=== PATIENT | female | born 1950 | race Hispanic/Latino ===

== ENCOUNTER 2016-07-28 05:49 | Day surgery (SDC) | payer MEDICARE ==
[~2016-07-28 05:49] MED LIST: METHYLENE BLUE ONE
[2016-07-28] MEDS ORDERED: FLAGYL 500 MG/100 ML 100 ML IV SCH (06:00)
[2016-07-28] MEDS ORDERED: NACL BACTERIOSTATIC INFILTRATI ONE (06:24)
[2016-07-28] MEDS ORDERED: XYLOCAINE MPF 2% ONE (06:49)
[2016-07-28] MEDS ORDERED: SUBLIMAZE ONE (06:49)
[2016-07-28] MEDS ORDERED: DIPRIVAN 10 MG/ML IV ONE (06:49)
--- NOTE | 2016-07-28 07:07 | Anesthesia Day of Surgery ---
Anesthesia Day of Surgery - Day of Surgery Patient Examined: Yes Patient H&P Reviewed: Yes Patient is NPO: Yes Beta Blockers: Yes (last pm)
--- NOTE | 2016-07-28 07:09 | Anesthesia Consultation ---
Anesthesia Consult and Med Hx - Airway Anesthetic Teeth Evaluation: Good, Crowns ROM Head & Neck: Adequate Mental/Hyoid Distance: Inadequate Mallampati Class: Class II Intubation Access Assessment: Probably Good - Pulmonary Exam CTA: Yes - Cardiac Exam Cardiac Exam: RRR - Pre-Operative Health Status ASA Pre-Surgery Classification: ASA2 Proposed Anesthetic Plan: General - Pulmonary Hx Smoking: Yes (STOPPED 1979 , 1 PPD X 14 YRS) Hx Sleep Apnea: No (ROSALIA PRE SCREEN LOW RISK) - Cardiovascular System Hx Hypertension: No - Central Nervous System Hx Neuromuscular Disorder: (HX Migraines) Hx Psychiatric Problems: Yes (depression) - Gastrointestinal Hx Gastroesophageal Reflux Disease: Yes (controlled on meds) - Endocrine Hx Hypothyroidism: Yes - Other Systems Hx Cancer: No - Additional Comments Anesthesia Medical History Comments: No prior anesthesia problems. NPO after MN
[2016-07-28] MEDS ORDERED: DILAUDID IV PRN (07:23)
[2016-07-28] MEDS ORDERED: ZOFRAN IV PRN (07:23)
[2016-07-28] MEDS ORDERED: ROBINUL ONE (07:51)
[2016-07-28] MEDS ORDERED: ZOFRAN ONE (07:51)
[2016-07-28] MEDS ORDERED: PEPCID PO NR (08:00)
[2016-07-28] MEDS ORDERED: VERSED IV NR (08:00)
[2016-07-28] MEDS ORDERED: LACTATED RINGERS 1,000 ML IV SCH (08:00)
[2016-07-28] MEDS ORDERED: WATER FOR IRRIG STERILE IR ONE (08:15)
--- NOTE | 2016-07-28 08:41 | Short Stay Summary ---
Short Stay Documentation Date of service: 07/28/16 - History H&P: obtained from office - Allergies and Medications Current Medications: Allergies No Known Allergies Allergy (Verified 09/16/14 23:14) Home Medications Medication Instructions Recorded Confirmed Last Taken Type Aspirin [Adult Low Dose Aspirin EC] 81 mg PO DAILY 07/22/16 07/28/16 07/21/16 History FLUoxetine HCL [PROzac] 40 mg PO QDAY 07/22/16 07/28/16 07/27/16 History Fenofibrate [Tricor] 145 mg PO QDAY 07/22/16 07/28/16 07/27/16 History Lansoprazole [Prevacid] 30 mg PO BID 07/22/16 07/28/16 07/27/16 22:30 History Levaquin TAB 750 mg PO DAILY 07/22/16 07/28/16 07/27/16 History Levothyroxine [Synthroid] 50 mcg PO QAM 07/22/16 07/28/16 07/27/16 History Raloxifene (Nf) [Evista (Nf)] 60 mg PO DAILY 07/22/16 07/28/16 07/27/16 History Simvastatin [Zocor TAB] 80 mg PO QHS 07/22/16 07/28/16 07/27/16 History buPROPion SR [Wellbutrin Sr] 150 mg PO QAM 07/22/16 07/28/16 07/27/16 History traZODone [Desyrel] 100 mg PO QHS 07/22/16 07/28/16 07/26/16 History Celecoxib [celeBREX] 200 mg PO BID 07/28/16 07/28/16 07/27/16 22:30 History Donepezil [Aricept] 5 mg PO QDAY 07/28/16 07/28/16 07/27/16 History Ibuprofen [Advil 100 MG tab] 200 mg PO Q6H PRN 07/28/16 07/28/16 07/24/16 History Mirabegron [Myrbetriq] 50 mg PO QDAY 07/28/16 07/28/16 07/27/16 History Montelukast [Singulair] 10 mg PO QDAY PRN 07/28/16 07/28/16 Unknown History Oxybutynin Chloride [Ditropan Xl] 15 mg PO QDAY 07/28/16 07/28/16 07/27/16 History Propranolol HCl [Inderal LA] 60 mg PO QDAY 07/28/16 07/28/16 07/27/16 09:00 History Active Medications Famotidine (Pepcid) 20 mg PO PREOP NR Stop: 07/28/16 11:00 Last Admin: 07/28/16 07:19 Dose: 20 mg Hydromorphone HCl (Dilaudid) 0.5 mg IV Q10MIN PRN PRN Reason: Pain , Severe (7-10) Stop: 07/31/16 07:24 Metronidazole (Flagyl 500 Mg/100 Ml) 100 mls @ 100 mls/hr IV PREOP KONRAD Stop: 07/28/16 23:00 Lactated Ringer's (Lactated Ringers) 1,000 mls @ 75 mls/hr IV DIRECT KONRAD Last Admin: 07/28/16 07:21 Dose: 75 mls/hr Midazolam HCl (Versed) 2 mg IV PREOP NR Stop: 07/28/16 23:59 Last Admin: 07/28/16 07:22 Dose: 2 mg - Brief post op/procedure progress note Date of procedure: 07/28/16 Pre-op diagnosis: uti, PELVIC PAIN Post-op diagnosis: other (RT URETEROCELE) Procedure: CYSTO, RPG, HYDRODISTENTION, RT URETERAL MEATOTOMY, STENT WITH EXTERNAL STRING Anesthesia: AMANDEEP Surgeon: NEVAEH SHIELDS Estimated blood loss: none Pathology: none Condition: stable - Hospital course Hospital course: GERARDO ON CHART - Disposition Condition at discharge: Stable Disposition: DISCHARGED TO HOME OR SELFCARE
[2016-07-28] MEDS ORDERED: APRESOLINE ONE (08:54)
--- NOTE | 2016-07-28 09:25 | Post Anesthesia Evaluation ---
- Post Anesthesia Evaluation Patient Participated: Yes Airway Patent: Yes Stable Respiratory Function: Yes Nausea/Vomiting: No Temp > 96.8F: Yes Pain Manageable: Yes Adequeate Hydration: Yes Anesthesia Complications: No Block Receding Appropriately: Not Applicable Patient on Ventilator: No
[2016-07-28] MEDS ORDERED: APRESOLINE IV ONE (09:30)
--- NOTE | 2016-07-28 10:27 | Operative Report ---
PREOPERATIVE DIAGNOSES: Pelvic pain, recurrent urinary tract infection. POSTOPERATIVE DIAGNOSES: Pelvic pain, recurrent urinary tract infection, right ureterocele. PROCEDURE: Cystoscopy, bilateral retrograde pyelograms, hydrodistention, right ureteral meatotomy, double-J stent placement (6 Angolan 24 cm with an external string). SURGEON: Desmond Bright MD ANESTHESIA: General. ESTIMATED BLOOD LOSS: Minimal. FLUIDS: Crystalloid. COMPLICATIONS: No complications. INDICATIONS: This patient is a 65-year-old female followed for several years for recurrent urinary tract infection. She has actually had a colostomy for diverticular disease and reversal. She continues to have recurrent infection, pelvic pain. She has undergone CT, which was negative. CT of abdomen and pelvis which was negative. Colonoscopy, EGD, barium enema, no fistula could be appreciated; however, she continues to have a pelvic pain. She presents now for surgical intervention. DESCRIPTION OF PROCEDURE: The patient was taken to the operative suite, placed in a supine position. After adequate general anesthesia placed in a dorsal lithotomy position, prepped and draped in a sterile fashion. Pancystourethroscopy was performed with 22 Angolan Storz cystoscope, no acute bladder pathology. Left retrograde pyelogram was obtained with an 8 Angolan Dennis catheter and 8 mL of contrast. No filling defects or obstruction on the right side. The ureteral orifice was somewhat stenotic was unable to cannulate. Observation of the distal ureter I could watch efflux of urine and contrast on the left; however, on the right side I would see a bulb creation of a bolus of urine and then gradually the small amounts were able to come out, I was not able to cannulate with a cone tipped catheter; however, I did use a 0.035 Glidewire very stenotic ureteral orifice. I used a meatotomy scissors to open it retrograde, no dilatation could be appreciated. A 6 Angolan 24 cm double-J stent was left indwelling. Hydrodistention to 800 mL. Re-evaluation, no petechiae or hemorrhage. She was extubated and taken to recovery room. She will go home on [place] and [place] and follow up in the office. JOB# [id number] NIKOLAI/FRANCISCO
[2016-07-28 10:49] VITALS: BP 156/58
--- NOTE | 2016-07-28 11:51 | Fluoroscopy Report ---
Retrograde urogram. Findings: The left pelvicalyceal system and ureter appear normal. There is mild right pelvocaliectasis. The right ureter appears normal. On the final image, a double-J right ureteral stent is identified in good position.
== END 2016-07-28 10:40 | disposition home or self-care (01) ==
LOC: OR 05:49
PROVIDERS: ATTEND Urology
DX: N39.0 Urinary tract infection, site not specified (principal); I10 Essential (primary) hypertension; E78.00 Pure hypercholesterolemia, unspecified; K21.9 Gastro-esophageal reflux disease without esophagitis; G43.909 Migraine, unspecified, not intractable, without status migrainosus; F32.9 Major depressive disorder, single episode, unspecified; E03.9 Hypothyroidism, unspecified; Z87.891 Personal history of nicotine dependence; Z90.710 Acquired absence of both cervix and uterus; Z98.890 Other specified postprocedural states
CPT/HCPCS: 52290; 52332; 74420; A4217; C1726; C1758; C1769; C2617; J0360; J1170; J2250; J2405; J2704; J3010; J7120; Q9967; Q9968